=== PATIENT | female | born 1945 | race Caucasian/White ===

== ENCOUNTER 2017-08-04 04:37 | Inpatient (IN) | payer MEDICARE ==
[2017-08-04] MEDS: ONDANSETRON 4 MG INJ IV (05:43)
[2017-08-04 06:03] LABS: ADD MAN DIFF? NO
[2017-08-04 06:29] LABS: INR 0.99; PARTIAL THROMBOPLASTIN TIME 32.3 Sec (25.0-35.0); PROTIME 13.2 Sec (11.9-14.9)
[2017-08-04 06:48] LABS: ALANINE AMINOTRANSFERASE 7 IU/L (13-69); ALBUMIN 4.5 g/dl (3.3-4.9); ALBUMIN/GLOBULIN RATIO 1.15; ALKALINE PHOSPHATASE 66 IU/L (42-121); ANION GAP 21 (8-16); ASPARTATE AMINO TRANSFERASE 34 IU/L (15-46); BILIRUBIN,INDIRECT 0.2 mg/dl (0-1.1); BILIRUBIN,TOTAL 0.2 mg/dl (0.2-1.3); BLOOD UREA NITROGEN 33 mg/dl (7-20); CALCIUM 9.3 mg/dl (8.4-10.2); CARBON DIOXIDE 25 mmol/L (21-31); CHLORIDE 98 mmol/L (97-110); CREATININE 2.97 mg/dl (0.44-1.00); GLUCOSE 78 mg/dl (70-220); POTASSIUM 5.6 mmol/L (3.5-5.1); SODIUM 138 mmol/L (135-144); TOTAL PROTEIN 8.4 g/dl (6.1-8.1)
[2017-08-04 06:58] LABS: TROPONIN-I 0.026 ng/ml (0.00-0.12)
[2017-08-04 07:12] LABS: BASOPHILS % 0.2 % (0.0-2.0); EOSINOPHILS % 0.2 % (0.0-7.0); HEMATOCRIT 43.3 % (37.0-47.0); HEMOGLOBIN 14.1 g/dl (12.0-16.0); LYMPHOCYTES # 0.9 10^3/ul (0.8-2.9); LYMPHOCYTES % 10.3 % (15.0-51.0); MEAN CORPUSCULAR HEMOGLOBIN 33.4 pg (29.0-33.0); MEAN CORPUSCULAR HGB CONC 32.6 g/dl (32.0-37.0); MEAN CORPUSCULAR VOLUME 102.6 fl (82.0-101.0); MEAN PLATELET VOLUME 9.9 fl (7.4-10.4); MONOCYTE # 0.6 10^3/ul (0.3-0.9); NEUTROPHIL # 6.8 10^3/ul (1.6-7.5); NEUTROPHILS % 81.9 % (39.0-77.0); PLATELET COUNT 190 10^3/UL (140-415); RED BLOOD COUNT 4.22 10^6/ul (4.20-5.40); RED CELL DISTRIBUTION WIDTH 17.6 % (11.5-14.5)
[2017-08-04 07:12] LABS: WHITE BLOOD COUNT 8.3 10^3/ul (4.8-10.8)
[2017-08-04 07:58] LABS: B-TYPE NATRIURETIC PEPTIDE 3200 PG/ML (0-125)
[2017-08-04 10:16] LABS: ADD UMIC YES; UR AMORPHOUS CRYSTAL FEW /HPF (NONE SEEN); UR ASCORBIC ACID 40 mg/dL (NEGATIVE); UR BACTERIA FEW /HPF (NONE SEEN); UR BILIRUBIN (Dip) NEGATIVE (NEGATIVE); UR BLOOD (Dip) 2+ mg/dL (NEGATIVE); UR CLARITY SLIGHTLY CLOUDY (CLEAR); UR COLOR YELLOW (YELLOW); UR GLUCOSE (Dip) NEGATIVE (NEGATIVE); UR KETONES (Dip) NEGATIVE (NEGATIVE); UR LEUKOCYTE ESTERASE (Dip) 1+ Leu/ul (NEGATIVE); UR MUCUS FEW /HPF (NONE SEEN); UR NITRITE (Dip) NEGATIVE (NEGATIVE); UR RBC 42 /HPF (0-5); UR SPECIFIC GRAVITY (Dip) 1.021 (1.003-1.030); UR SQUAMOUS EPITHELIAL CELL FEW /HPF (FEW); UR TOTAL PROTEIN (Dip) NEGATIVE (NEGATIVE); UR UROBILINOGEN (Dip) NEGATIVE (NEGATIVE); UR WBC 7 /HPF (0-5)
[2017-08-04] MEDS: NA POLYST SULFON 15 GM/60 ML BTL PO (12:08)
[2017-08-04] MEDS: ACETAMINOPHEN 325 MG TAB PO (13:00)
[2017-08-04] MEDS ORDERED: NITROGLYCERIN (SL) 0.4 MG TAB SL (14:00)
[2017-08-04] MEDS ORDERED: MAGNESIUM HYDROXIDE 30ML CUP PO (14:00)
[2017-08-04] MEDS ORDERED: ONDANSETRON 4 MG INJ IV (14:00)
[2017-08-04] MEDS ORDERED: hydrALAzine 20 MG INJ IV (14:00)
[2017-08-04] MEDS ORDERED: NA PHOSPHATE/BIPHOS 133 ML ENEMA PR (14:00)
[2017-08-04] MEDS ORDERED: NACL 0.9% 3 ML SYG IV (14:00)
[2017-08-04] MEDS ORDERED: morphine 2 MG INJ IV (14:00)
[2017-08-04] MEDS ORDERED: LORAZEPAM 2 MG INJ IV (14:00)
[2017-08-04] MEDS ORDERED: ALBUTEROL/IPRATROPIUM (NEB) 3 ML AMP HHN (14:00)
[2017-08-04] MEDS ORDERED: ACETAMINOPHEN 325 MG TAB PO (14:00)
[2017-08-04] MEDS ORDERED: traMADol 50 MG TAB PO (14:00)
[2017-08-04] MEDS: CEFTRIAXONE 1 GM/50 ML (PMX) 50 ML IVPB (14:28)
[2017-08-04 14:56] LABS: FREE T4 (FREE THYROXINE) 1.31 ng/dl (0.78-2.44)
[2017-08-04] MEDS: SEVELAMER CARBONATE 0.8 GM PKT PO (18:05)
[2017-08-04] MEDS: HEPARIN 1000 UNITS/ML 10 ML INJ CATHETER (23:19)
[2017-08-04 23:51] LABS: HEPATITIS B SURFACE ANTIGEN NEGATIVE (NEGATIVE)
[2017-08-05] MEDS: SEVELAMER CARBONATE 0.8 GM PKT PO ×5 (00:36→20:47)
[2017-08-05] MEDS: LEVETIRACETAM 500 MG TAB PO ×3 (00:37→20:47)
[2017-08-05] MEDS: HEPARIN 5,000 UNIT/0.5 ML VIAL SC ×3 (00:39→20:50)
[2017-08-05] MEDS: PANTOPRAZOLE 40 MG INJ IV (06:04)
[2017-08-05 06:40] LABS: ADD MAN DIFF? NO
[2017-08-05 06:47] LABS: WHITE BLOOD COUNT 9.7 10^3/ul (4.8-10.8)
[2017-08-05 06:47] LABS: BASOPHILS % 0.3 % (0.0-2.0); HEMOGLOBIN 12.1 g/dl (12.0-16.0); LYMPHOCYTES # 1.2 10^3/ul (0.8-2.9); LYMPHOCYTES % 12.2 % (15.0-51.0); MEAN CORPUSCULAR HEMOGLOBIN 32.8 pg (29.0-33.0); MEAN CORPUSCULAR HGB CONC 32.7 g/dl (32.0-37.0); MEAN CORPUSCULAR VOLUME 100.3 fl (82.0-101.0); MEAN PLATELET VOLUME 9.2 fl (7.4-10.4); MONOCYTE # 0.9 10^3/ul (0.3-0.9); MONOCYTES % 8.9 % (0.0-11.0); NEUTROPHIL # 7.6 10^3/ul (1.6-7.5); NEUTROPHILS % 78.2 % (39.0-77.0); PLATELET COUNT 193 10^3/UL (140-415); RED BLOOD COUNT 3.69 10^6/ul (4.20-5.40); RED CELL DISTRIBUTION WIDTH 17.3 % (11.5-14.5)
[2017-08-05 06:56] LABS: HEMOGLOBIN A1C 4.2 % (0-5.9)
[2017-08-05 07:08] LABS: CHOL/HDL RATIO 1.8 RATIO; HDL CHOLESTEROL 61 mg/dl (33-92); LDL CHOLESTEROL,CALCULATED 43 mg/dl; TRIGLYCERIDES 57 mg/dl (0-149)
[2017-08-05 07:08] LABS: CHOLESTEROL 115 mg/dl (100-200)
[2017-08-05 07:13] LABS: ANION GAP 18 (8-16); BLOOD UREA NITROGEN 19 mg/dl (7-20); CARBON DIOXIDE 27 mmol/L (21-31); CHLORIDE 100 mmol/L (97-110); CREATININE 2.28 mg/dl (0.44-1.00); GLUCOSE 86 mg/dl (70-220); PHOSPHORUS 4.6 mg/dl (2.5-4.9); POTASSIUM 3.4 mmol/L (3.5-5.1); SODIUM 142 mmol/L (135-144)
[2017-08-05] MEDS: CHOLECALCIFEROL 2,000 UNIT CAP PO (09:25)
[2017-08-05] MEDS: POTASSIUM CHLORIDE (SR) 20 MEQ TAB PO (09:26)
[2017-08-05] MEDS: ASPIRIN (EC) 81 MG TAB PO (09:26)
[2017-08-05] MEDS: DIVALPROEX (ER) 500 MG TAB PO (09:30)
[2017-08-05] MEDS: DONEPEZIL 10 MG TAB PO (09:35)
[2017-08-05] MEDS: CEFTRIAXONE 1 GM/50 ML (PMX) 50 ML IVPB (14:28)
[2017-08-05] MEDS: HYDROCODONE/APAP (5/325) TAB PO (17:48)
[2017-08-05] MEDS: DOCUSATE SODIUM 100 MG CAP PO (17:48)
[2017-08-05] MEDS: ATORVASTATIN 10 MG TAB PO (20:47)
[2017-08-05] MEDS: ZOLPIDEM 5 MG TAB PO (23:35)
[2017-08-06] MEDS: PANTOPRAZOLE 40 MG INJ IV (05:48)
[2017-08-06 07:38] LABS: ADD MAN DIFF? NO
[2017-08-06 07:49] LABS: BASOPHILS % 0.3 % (0.0-2.0); HEMATOCRIT 34.3 % (37.0-47.0); HEMOGLOBIN 11.5 g/dl (12.0-16.0); LYMPHOCYTES # 1.1 10^3/ul (0.8-2.9); LYMPHOCYTES % 14.9 % (15.0-51.0); MEAN CORPUSCULAR HEMOGLOBIN 33.3 pg (29.0-33.0); MEAN CORPUSCULAR HGB CONC 33.5 g/dl (32.0-37.0); MEAN CORPUSCULAR VOLUME 99.4 fl (82.0-101.0); MEAN PLATELET VOLUME 9.4 fl (7.4-10.4); MONOCYTE # 0.7 10^3/ul (0.3-0.9); MONOCYTES % 9.2 % (0.0-11.0); NEUTROPHIL # 5.7 10^3/ul (1.6-7.5); NEUTROPHILS % 75.5 % (39.0-77.0); PLATELET COUNT 217 10^3/UL (140-415); RED BLOOD COUNT 3.45 10^6/ul (4.20-5.40); RED CELL DISTRIBUTION WIDTH 16.7 % (11.5-14.5)
[2017-08-06 07:49] LABS: WHITE BLOOD COUNT 7.5 10^3/ul (4.8-10.8)
[2017-08-06 08:24] LABS: ANION GAP 18 (8-16); BLOOD UREA NITROGEN 41 mg/dl (7-20); CALCIUM 8.4 mg/dl (8.4-10.2); CARBON DIOXIDE 25 mmol/L (21-31); CHLORIDE 97 mmol/L (97-110); CREATININE 3.14 mg/dl (0.44-1.00); GLUCOSE 79 mg/dl (70-220); POTASSIUM 3.8 mmol/L (3.5-5.1); SODIUM 136 mmol/L (135-144)
[2017-08-06] MEDS: SEVELAMER CARBONATE 0.8 GM PKT PO ×3 (08:38→17:20)
[2017-08-06] MEDS: DIVALPROEX (ER) 500 MG TAB PO (08:40)
[2017-08-06] MEDS: ASPIRIN (EC) 81 MG TAB PO (08:40)
[2017-08-06] MEDS: LEVETIRACETAM 500 MG TAB PO (08:41)
[2017-08-06] MEDS: DONEPEZIL 10 MG TAB PO (08:41)
[2017-08-06] MEDS: CHOLECALCIFEROL 2,000 UNIT CAP PO (08:42)
[2017-08-06] MEDS: HEPARIN 5,000 UNIT/0.5 ML VIAL SC (08:45)
[2017-08-06] MEDS: HYDROCODONE/APAP (5/325) TAB PO (10:16)
[2017-08-06] MEDS: ALTEPLASE (CATHFLO) 2 MG INJ CATHETER (13:57)
== END 2017-08-06 17:45 | disposition home health service (06) | DRG 388 ==
LOC: E/R 04:37 → MS4 13:32
PROVIDERS: Hospitalist
PROC: 5A1D70Z Performance of Urinary Filtration, Intermittent, Less than 6 Hours Per Day (ICD-10-PCS; principal; 2017-08-04)
PROC: 5A1D70Z Performance of Urinary Filtration, Intermittent, Less than 6 Hours Per Day (ICD-10-PCS; 2017-08-06)
DX: K56.41 Fecal impaction (principal); N18.6 End stage renal disease; E44.0 Moderate protein-calorie malnutrition; Z68.1 Body mass index [BMI] 19.9 or less, adult; I12.0 Hypertensive chronic kidney disease with stage 5 chronic kidney disease or end stage renal disease; Z99.2 Dependence on renal dialysis; G40.909 Epilepsy, unspecified, not intractable, without status epilepticus; F03.90 Unspecified dementia, unspecified severity, without behavioral disturbance, psychotic disturbance, mood disturbance, and anxiety; E87.5 Hyperkalemia; E83.89 Other disorders of mineral metabolism; D64.9 Anemia, unspecified; R06.02 Shortness of breath; R79.9 Abnormal finding of blood chemistry, unspecified
CPT/HCPCS: 36415; 70450; 71045; 74176; 78582; 80048; 80053; 80061; 81001; 83036; 83735; 83880; 84100; 84439; 84443; 84484; 85025; 85610; 85730; 87040; 87086; 87340; 90935; 93005; 93306; 96374; 96375; 97162; 99285-25

== ENCOUNTER 2018-04-19 17:30 | Emergency (ER) | payer MEDICARE ==
[2018-04-19 17:58] LABS: ADD MAN DIFF? NO
[2018-04-19 18:05] LABS: WHITE BLOOD COUNT 6.8 10^3/ul (4.8-10.8)
[2018-04-19 18:05] LABS: BASOPHILS % 0.4 % (0.0-2.0); EOSINOPHILS # 0.1 10^3/ul (0.0-0.5); HEMATOCRIT 32.9 % (37.0-47.0); HEMOGLOBIN 10.9 g/dl (12.0-16.0); LYMPHOCYTES # 1.3 10^3/ul (0.8-2.9); LYMPHOCYTES % 18.5 % (15.0-51.0); MEAN CORPUSCULAR HEMOGLOBIN 34.1 pg (29.0-33.0); MEAN CORPUSCULAR HGB CONC 33.1 g/dl (32.0-37.0); MEAN CORPUSCULAR VOLUME 102.8 fl (82.0-101.0); MEAN PLATELET VOLUME 8.6 fl (7.4-10.4); MONOCYTE # 1.1 10^3/ul (0.3-0.9); MONOCYTES % 16.3 % (0.0-11.0); NEUTROPHIL # 4.3 10^3/ul (1.6-7.5); NEUTROPHILS % 63.4 % (39.0-77.0); PLATELET COUNT 182 10^3/UL (140-415); RED CELL DISTRIBUTION WIDTH 12.9 % (11.5-14.5)
[2018-04-19] MEDS: ONDANSETRON 4 MG INJ IV (18:23)
[2018-04-19 18:24] LABS: ALANINE AMINOTRANSFERASE 9 IU/L (13-69); ALBUMIN 3.8 g/dl (3.3-4.9); ALBUMIN/GLOBULIN RATIO 1.22; ALKALINE PHOSPHATASE 58 IU/L (42-121); ANION GAP 10 (5-13); ASPARTATE AMINO TRANSFERASE 16 IU/L (15-46); BILIRUBIN,INDIRECT 0.2 mg/dl (0-1.1); BILIRUBIN,TOTAL 0.2 mg/dl (0.2-1.3); BLOOD UREA NITROGEN 31 mg/dl (7-20); CARBON DIOXIDE 30 mmol/L (21-31); CHLORIDE 95 mmol/L (97-110); CREATININE 3.03 mg/dl (0.44-1.00); GLUCOSE 115 mg/dl (70-220); LIPASE 109 U/L (23-300); POTASSIUM 4.8 mmol/L (3.5-5.1); SODIUM 135 mmol/L (135-144); TOTAL PROTEIN 6.9 g/dl (6.1-8.1)
[2018-04-19 19:05] LABS: URINE BLOOD (Dip) POC 1+ (NEGATIVE); URINE GLUCOSE (Dip) POC Negative (NEGATIVE); URINE KETONES (Dip) POC Negative (NEGATIVE); URINE LEUKOCYTE EST (Dip) POC 3+ (NEGATIVE); URINE NITRITE (Dip) POC Negative (NEGATIVE); URINE TOTAL PROTEIN POC 2+ (NEGATIVE)
[2018-04-19 19:46] LABS: ADD UMIC YES; UR ASCORBIC ACID NEGATIVE (NEGATIVE); UR BACTERIA MANY /HPF (NONE SEEN); UR BILIRUBIN (Dip) NEGATIVE (NEGATIVE); UR BLOOD (Dip) 1+ mg/dL (NEGATIVE); UR BUDDING YEAST MODERATE /HPF (NONE SEEN); UR CLARITY TURBID (CLEAR); UR COLOR YELLOW (YELLOW); UR GLUCOSE (Dip) NEGATIVE (NEGATIVE); UR KETONES (Dip) NEGATIVE (NEGATIVE); UR LEUKOCYTE ESTERASE (Dip) 2+ Leu/ul (NEGATIVE); UR MUCUS FEW /HPF (NONE SEEN); UR NITRITE (Dip) NEGATIVE (NEGATIVE); UR RBC 12 /HPF (0-5); UR SPECIFIC GRAVITY (Dip) 1.009 (1.003-1.030); UR TOTAL PROTEIN (Dip) 2+ mg/dl (NEGATIVE); UR UROBILINOGEN (Dip) NEGATIVE (NEGATIVE); UR WBC > 182 /HPF (0-5)
[2018-04-19] MEDS: CEFTRIAXONE 1 GM/50 ML (PMX) 50 ML IVPB (20:11)
[2018-04-22 00:05] LABS: URINE BLOOD (Dip) POC 1+ (NEGATIVE); URINE GLUCOSE (Dip) POC Negative (NEGATIVE); URINE KETONES (Dip) POC Negative (NEGATIVE); URINE LEUKOCYTE EST (Dip) POC 3+ (NEGATIVE); URINE NITRITE (Dip) POC Negative (NEGATIVE); URINE TOTAL PROTEIN POC 2+ (NEGATIVE)
== END 2018-04-20 00:35 | disposition home or self-care (01) ==
LOC: E/R 04-20 00:35
DX: N30.00 Acute cystitis without hematuria (principal); I12.0 Hypertensive chronic kidney disease with stage 5 chronic kidney disease or end stage renal disease; N18.6 End stage renal disease; R40.2142 Coma scale, eyes open, spontaneous, at arrival to emergency department; R40.2252 Coma scale, best verbal response, oriented, at arrival to emergency department; R40.2362 Coma scale, best motor response, obeys commands, at arrival to emergency department; Z87.891 Personal history of nicotine dependence; Z96.649 Presence of unspecified artificial hip joint; Z79.82 Long term (current) use of aspirin; Z99.2 Dependence on renal dialysis
CPT/HCPCS: 36415; 71045; 74176; 80053; 81001; 81003; 83690; 85025; 87086; 96365; 96375; 99285-25